=== PATIENT | male | born 1985 | race Hispanic/Latino ===

== ENCOUNTER 2021-08-27 23:15 | Emergency (ER) | payer OTHER ==
[2021-08-28] MEDS ORDERED: Dexamethasone 10 MG/ML VIAL ONE (00:43)
[2021-08-28 01:06] LABS: SARS-CoV-2 NAA Rapid Test Not Detected (NotDetected)
== END 2021-08-28 01:22 | disposition home or self-care (01) ==
LOC: CSHERS 23:15
DX: J45.901 Unspecified asthma with (acute) exacerbation (principal); Z20.822 Contact with and (suspected) exposure to COVID-19
CPT/HCPCS: 71045; J1100; J7620; U0002

== ENCOUNTER 2022-10-29 17:42 | Emergency (ER) | payer OTHER ==
[2022-10-29] MEDS ORDERED: Ketorolac Tromethamine 30 MG/ML VIAL ONE ×2 (19:46→19:49)
[2022-10-29] MEDS ORDERED: Diazepam 10 MG/2 ML SYRINGE ONE (19:47)
== END 2022-10-29 20:08 | disposition home or self-care (01) ==
LOC: CSHERS 17:42
DX: S39.012A Strain of muscle, fascia and tendon of lower back, initial encounter (principal); X50.0XXA Overexertion from strenuous movement or load, initial encounter
CPT/HCPCS: 96372; 99283; J1885; J3360

== ENCOUNTER 2025-02-21 05:25 | Emergency (ER) | payer OTHER ==
[2025-02-21] MEDS ORDERED: Ketorolac Tromethamine 30 MG (1 mL) VIAL ONE (05:49)
[2025-02-21 05:54] LABS: #Basophils 0.05 10x3/uL (0.0-0.2); #Eosinophils 0.45 10x3/uL (0.0-0.5); #Monocytes 0.72 10x3/uL (0.0-1.1); #Neutrophils 5.57 10x3/uL (1.5-8.4); %Basophils 0.6 % (0.0-2.0); %Eosinophils 5.0 % (0.0-6.0); %Lymphocytes 23.7 % (18.0-47.0); %Monocytes 8.1 % (0.0-10.0); %Neutrophils 62.3 % (40.0-75.0); Hematocrit 40.8 % (38.8-50.0); Hemoglobin 14.1 g/dL (13.5-17.5); Mean Corpuscular Hemoglobin 29.9 pg (27.0-33.0); Mean Corpuscular Volume 86.6 fL (81.2-95.1); Platelet Count 204 10x3/uL (150-450); Red Blood Cell (RBC) Count 4.71 10x6/uL (4.32-5.72); White Blood Cell (WBC) Count 8.94 10x3/uL (3.5-10.5)
[2025-02-21 06:07] LABS: ALT (SGPT) 19 U/L (Less than 45); AST (SGOT) 21 U/L (11-34); Albumin 4.4 g/dL (3.1-4.5); Alkaline Phosphatase 40 U/L (40-110); Anion Gap 12 mmol/L (10-20); BUN (Urea Nitrogen) 15 mg/dL (8.9-20.6); Bilirubin, Total 0.4 mg/dL (0.3-1.2); Calc. Creatinine Clearance 0 mL/min (70-130); Calcium 9.2 mg/dL (7.8-10.44); Carbon Dioxide 26 mmol/L (22-29); Chloride 107 mmol/L (98-107); Globulin 2.8 g/dL (2.4-3.5); Glucose 106 mg/dL (70-105); Potassium 4.1 mmol/L (3.5-5.1); Sodium 141 mmol/L (136-145)
== END 2025-02-21 07:00 | disposition home or self-care (01) ==
LOC: CSHERS 05:25
DX: R10.A1 Flank pain, right side (principal); N20.0 Calculus of kidney
CPT/HCPCS: 80053; 85025; 96374; J1885